=== PATIENT | female | born 1995 | race Caucasian/White ===

== ENCOUNTER 2020-06-12 23:51 | Emergency (ER) | payer OTHER ==
[~2020-06-12] VITALS: Ht 160 cm; Wt 68.0 kg
[2020-06-13] MEDS ORDERED: BIRTH CONTROL PILL PO (00:03)
[2020-06-13] MEDS ORDERED: FAMOTIDINE 10 MG/ML 2 ML VIAL IVP ONE (00:15)
[2020-06-13] MEDS ORDERED: SODIUM CHLORIDE 0.9% 1,000 ML IV ONE (00:15)
[2020-06-13] MEDS ORDERED: ONDANSETRON HCL 4 MG/2 ML VIAL IVP ONE (00:15)
[2020-06-13] MEDS ORDERED: LORazepam 2 MG/ML VIAL IVP ONE (00:15)
[2020-06-13 00:25] LABS: BASOPHILS % (AUTO) 1.1 % (0.0-2.0); EOSINOPHILS % (AUTO) 1.6 % (1.0-6.0); HEMATOCRIT 37.8 % (36-46); HEMOGLOBIN 12.7 g/dL (12.0-16.0); LYMPHOCYTES # (AUTO) 5.1 K/uL (1.0-4.8); LYMPHOCYTES % (AUTO) 51.3 % (22.0-44.0); MEAN CORPUSCULAR HEMOGLOBIN 28.9 pg (26.0-34.0); MEAN CORPUSCULAR HGB CONC 33.5 G/dL (31.0-37.0); MEAN CORPUSCULAR VOLUME 86 fL (80-100); MONOCYTES # (AUTO) 0.7 K/uL (0.1-1.0); NEUTROPHILS # (AUTO) 3.9 K/uL (1.8-7.7); PLATELET COUNT (AUTO) 318 K/uL (150-450); RED BLOOD CELL COUNT(AUTO) 4.39 MIL/uL (4.00-5.20); RED CELL DISTRIBUTION WIDTH 14.7 % (11.5-14.5)
[2020-06-13 00:31] LABS: ANION GAP 12 mmol/L (8-16); CALCIUM, TOTAL 9.1 mg/dL (8.8-10.5); CARBON DIOXIDE 25 mmol/L (22-29); CHLORIDE 102 mmol/L (98-107); CREATININE 0.87 mg/dL (0.60-1.30); GLOMERULAR FILTR. RATE CALC > 60 mL/min (>60); GLUCOSE,RANDOM 112 mg/dL (70-110); POTASSIUM 3.1 mmol/L (3.5-5.1); SODIUM SERUM 139 mmol/L (136-145); UREA NITROGEN, BLOOD 10 mg/dL (7-18)
[2020-06-13 00:43] LABS: ALANINE AMINOTRANSFERASE 37 U/L (12-78); ALBUMIN 3.9 g/dL (3.4-5.0); ALKALINE PHOSPHATASE 72 U/L (46-116); ASPARTATE AMINOTRANSFERASE 32 U/L (15-37); BILIRUBIN,TOTAL 0.2 mg/dL (0.1-1.0); HCG,QUANTITATIVE < 1 mIU/mL (0-6); LIPASE 101 U/L (73-393); TOTAL PROTEIN, SERUM 8.1 g/dL (6.4-8.2)
[2020-06-13] MEDS ORDERED: PB/HYOSCY/ATR/SCOP/LIDO/MAALOX 55 ML BOTTLE PO ONE (02:30)
[2020-06-13] MEDS ORDERED: HYDROmorphone 2 MG/ML VIAL IVP ONE (02:30)
[2020-06-13 05:00] VITALS: BP 140/81
[2020-06-13] MEDS ORDERED: POTASSIUM CHLORIDE 20 MEQ ER TABLET PO ONE (05:15)
[2020-06-13] MEDS ORDERED: DESO1TAB92 PO (11:36)
== END 2020-06-13 05:29 | disposition home or self-care (01) ==
LOC: EMS 23:56
DX: K29.70 Gastritis, unspecified, without bleeding (principal); E87.6 Hypokalemia
CPT/HCPCS: 36415; 80053; 83690; 84702; 85025; 96361; 96374; 96375; 99285; G0480; J1170; J2405; J3490; J7030; J2060